=== PATIENT | male | born 1970 | race Hispanic/Latino ===

== ENCOUNTER → 2023-09-21 | Day surgery (SDC) | payer BC ==
[~2023-09-21] MED LIST: AMLODIPINE BESYL5 MG PO; BUSPIRONE HCL10 MG PO; CHLORTHALIDONE25 MG PO; FENTANYL CITRATE/PF 100MCG/2 ML INJ ONE; HYOSCYAMINE SULFATE 0.5 MG/ML INJ ONE; LOSARTAN POTASS25 MG PO; MAGNESIUM OXID400 MG PO; PANTOPRAZOLE SO40 MG PO; POTASSIUM CHLO10 ME1 PO; PROPOFOL IV EMULSION 10 MG/ML 20 ML VIAL ONE; PROPOFOL IV EMULSION 50 ML IV ONE; SIMVASTATIN40 MG PO; VITAMIN D3 COM1 EACH PO; XANAX0.25 MG PO
[2023-09-21 14:27] VITALS: TEMP 97.6
[2023-09-21 14:40] VITALS: BP 112/85; PULSE 85; RESP 15; O2SAT 98
== END | disposition home or self-care (01) ==
LOC: OR 12:39
PROVIDERS: ATTEND Internal Medicine Gastroenterology
DX: Z12.11 Encounter for screening for malignant neoplasm of colon (principal); K63.5 Polyp of colon; K64.8 Other hemorrhoids; K29.60 Other gastritis without bleeding; Z71.3 Dietary counseling and surveillance; K76.0 Fatty (change of) liver, not elsewhere classified; I10 Essential (primary) hypertension; K21.9 Gastro-esophageal reflux disease without esophagitis; F41.9 Anxiety disorder, unspecified; Z79.899 Other long term (current) drug therapy; Z68.28 Body mass index [BMI] 28.0-28.9, adult
CPT/HCPCS: 45385; J1980; J2704 ×2; J3010; 45378

== ENCOUNTER 2024-01-25 17:25 | Emergency (ER) | payer SELFPAY ==
[~2024-01-25 17:25] MED LIST changes: -FENTANYL CITRATE/PF 100MCG/2 ML INJ ONE; -HYOSCYAMINE SULFATE 0.5 MG/ML INJ ONE; -PROPOFOL IV EMULSION 10 MG/ML 20 ML VIAL ONE; -PROPOFOL IV EMULSION 50 ML IV ONE
== END 2024-01-25 17:51 | disposition short-term general hospital (02) ==
LOC: ER 17:50
DX: R05.9 Cough, unspecified (principal)